=== PATIENT | male | born 1965 | race Two or more races ===

== ENCOUNTER 2018-10-23 12:36 | Inpatient (IN) | payer OTHER ==
[~2018-10-23] VITALS: Ht 180.3 cm; Wt 97.5 kg
[2018-11-02] MEDS ORDERED: AMILODIPINE PO (10:31)
[2018-11-02] MEDS ORDERED: TOPROL XL50 M1 PO (10:31)
[2018-11-02] MEDS ORDERED: CATAPRES0.1 MG PO (10:32)
[2018-11-02] MEDS ORDERED: HYDRAZALINE PO (10:32)
[2018-11-08] MEDS ORDERED: AMLODIPINE BESY10 MG PO (08:15)
[2018-11-08] MEDS ORDERED: AMLODIPINE BESYL5 MG PO (08:16)
[2018-11-08] MEDS ORDERED: HYDRALAZINE HCL50 MG PO (08:19)
== END 2018-11-10 17:24 | disposition home or self-care (01) | DRG 330 ==
LOC: SURH 11-02 08:30 → O/R 11-08 06:27 → SURH 11-08 08:30
PROVIDERS: ADMIT Colon & Rectal Surgery
PROC: 0DJD8ZZ Inspection of Lower Intestinal Tract, Via Natural or Artificial Opening Endoscopic (ICD-10-PCS; 2018-11-08)
PROC: 0DTN4ZZ Resection of Sigmoid Colon, Percutaneous Endoscopic Approach (ICD-10-PCS; principal; 2018-11-08 09:15)
DX: K57.32 Diverticulitis of large intestine without perforation or abscess without bleeding (principal); Q60.0 Renal agenesis, unilateral; I11.9 Hypertensive heart disease without heart failure; R73.01 Impaired fasting glucose

== ENCOUNTER 2020-02-01 11:30 | Day surgery (SDC) | payer OTHER ==
[~2020-02-01 11:30] MED LIST: AMILODIPINE PO; AMLODIPINE BESY10 MG PO; AMLODIPINE BESYL5 MG PO; CATAPRES0.1 MG PO; HYDRALAZINE HCL50 MG PO; HYDRAZALINE PO; TOPROL XL50 M1 PO
== END 2020-02-01 16:00 | disposition home or self-care (01) ==
LOC: AMB-ENDOS 11:30
PROVIDERS: ATTEND Colon & Rectal Surgery
DX: K52.89 Other specified noninfective gastroenteritis and colitis (principal); K64.1 Second degree hemorrhoids; Z20.828 Contact with and (suspected) exposure to other viral communicable diseases